=== PATIENT | male | born 1980 | race Caucasian/White ===

== ENCOUNTER 2017-03-11 09:04 | Emergency (ER) | payer BC ==
--- NOTE | 2017-03-11 10:00 | EDPHY ---
H & P Stated Complaint: L upper mouth/dental pain x 5 days--started self on pennicillin Time Seen by Provider: 03/11/17 09:15 HPI/ROS: Chief Complaint: Dental pain, focal area of gingival irritation HPI: The patient presents the ED with complaints of worsening dental pain in a focal area of gingival irritation. The patient has taken some penicillin VK intermittently over the past 5 days. He has been taking ibuprofen and Tylenol with minimal improvement of his symptoms. The patient did have a mild upper respiratory infection last week. The patient has no history of diabetes or other significant comorbidities. The patient denies significant neck pain or swelling. He denies reported history of fever. He has no history of dental surgery to the area REVIEW OF SYSTEMS: ENT: As above Musculoskeletal: as above Skin: no abrasion or lacerations Source: Patient - Personal History Current Tetanus/Diphtheria Vaccine: Yes Current Tetanus Diphtheria and Acellular Pertussis (TDAP): Yes - Medical/Surgical History Hx Asthma: No Hx Chronic Respiratory Disease: No Hx Diabetes: No Hx Cardiac Disease: No Hx Renal Disease: No Hx Cirrhosis: No Hx Alcoholism: No Hx HIV/AIDS: No Hx Splenectomy or Spleen Trauma: No Other PMH: anxiety. appy - Social History Smoking Status: Never smoked - Physical Exam Exam: General: No acute distress Head: Normocephalic atraumatic, no mandibular tenderness or swelling appreciated, no asymmetric facial tenderness or swelling appreciated Mouth: Focal area of erythema with small ulcerated lesion noted to the posterior gingiva in the left maxilla. No appreciable abscess noted. Neck: Supple, no adenopathy Constitutional: Initial Vital Signs Temperature (C) 36.9 C 03/11/17 09:08 Heart Rate 60 03/11/17 09:08 Respiratory Rate 16 03/11/17 09:08 Blood Pressure 127/64 H 03/11/17 09:08 O2 Sat (%) 98 03/11/17 09:08 O2 Delivery Mode Room Air Allergies/Adverse Reactions: No Known Allergies Allergy (Unverified 03/11/17 09:05) Home Medications: Medication Instructions Recorded Clindamycin 150 mg PO QID #28 cap 03/11/17 Clonazepam 03/11/17 Hydrocodone/APAP 5/325 [[place] 1 - 2 each PO Q6 PRN #20 tab 03/11/17 5/325] Lidocaine 2% Jelly [Lidocaine 2% 1 ml TP TID #1 tube 03/11/17 Jelly 30 gm] Penicillin G Sodium 03/11/17 Medical Decision Making ED Course/Re-evaluation: The patient presents to the ED with a small ulcerated lesion to his posterior gingiva. The patient has no evidence of an obvious peritonsillar abscess or retropharyngeal abscess. The patient has no clinical evidence of meningitis. He has no appreciable adenopathy. The patient will be started on clindamycin and advised to use viscous lidocaine as needed for pain control. He has an appointment to see a dentist this afternoon. The patient has been referred to our on-call oral surgeon for any unimproved symptoms. Departure - Departure Disposition: Home, Routine, Self-Care Clinical Impression: Gingival ulcer Condition: Good Instructions: Toothache (ED) Additional Instructions: 1. Please follow-up with your dentist as scheduled today. 2. Please return to the ED for markedly worsening pain, swelling or other concerns. 3. Please take antibiotics as directed for next week. 4. Please follow up with the oral surgeon you have been referred to for any unimproved symptoms. 5. Take Ibuprofen or Motrin 600 mg by mouth three times a day. 6. Viscous lidocaine as needed for pain relief. Referrals: Zeina Hernandez MD [Medical Doctor] - As per Instructions
[2017-03-11 10:27] VITALS: BP 121/82; PULSE 62; RESP 18; TEMP 98.1; O2SAT 97
== END 2017-03-11 10:27 | disposition home or self-care (01) ==
DX: K06.8 Other specified disorders of gingiva and edentulous alveolar ridge (principal)